=== PATIENT | female | born 1960 | race Caucasian/White ===

== ENCOUNTER 2019-08-16 11:04 | Emergency (ER) | payer OTHER, SELFPAY ==
[2019-08-16] MEDS ORDERED: Ondansetron PF 4 MG/2 ML Vial ONE (11:31)
[2019-08-16] MEDS ORDERED: Famotidine/PF 20 mg/2ml Vial ONE (11:31)
[2019-08-16 11:40] LABS: #Eosinphils 0.1 thou/uL (0.0-0.7); #Lymphocytes 1.3 thou/uL (1.20-3.40); #Monocytes 0.5 thou/uL (0.11-0.59); #Neutrophils 11.8 thou/uL (1.40-6.50); %Basophils 0.3 % (0.0-1.0); %Eosinophils 0.5 % (0.0-10.0); %Lymphocytes 9.6 % (21.0-51.0); %Monocytes 3.9 % (0.0-10.0); %Neutrophils 85.7 % (42.0-75.0); Hemoglobin 14.7 g/dL (12.0-16.0); Mean Corpuscular HGB CONC 33.5 g/dL (32.0-36.0); Mean Corpuscular Hemoglobin 27.4 pg (27.0-31.0); Mean Corpuscular Volume 81.7 fL (78.0-98.0); Mean Platelet Volume 9.1 fL (7.4-10.4); Platelet Count 268 thou/uL (130-400); Red Blood Cell (RBC) Count 5.38 mill/uL (4.20-5.40); White Blood Cell (WBC) Count 13.7 thou/uL (4.8-10.8)
--- NOTE | 2019-08-16 11:58 | RAD ---
Frontal radiograph chest Upright and supine imaging of abdomen and pelvis: 08/16/2019 COMPARISON: None HISTORY: There is contrast media within the colon. No pneumothorax or pleural fluid is seen and there is no focal consolidation or alveolar edema. There is atherosclerotic calcification of the aortic arch. No evidence for free intraperitoneal air or small bowel obstruction. IMPRESSION: No acute findings. Contrast media noted within the colon.
[2019-08-16 12:06] LABS: ALT (SGPT) 17 U/L (8-55); AST (SGOT) 18 U/L (5-34); Albumin 4.3 g/dL (3.5-5.0); Alkaline Phosphatase 104 U/L (40-110); Anion Gap 14 mmol/L (10-20); BUN (Urea Nitrogen) 18 mg/dL (9.8-20.1); Bilirubin, Total 0.5 mg/dL (0.2-1.2); Calc. Creatinine Clearance 0 mL/min (70-130); Calcium 10.7 mg/dL (7.8-10.44); Carbon Dioxide 23 mmol/L (22-29); Chloride 102 mmol/L (98-107); Estimated GFR-MDRD 84; Globulin 3.4 g/dL (2.4-3.5); Glucose 123 mg/dL (70-105); Lipase 21 U/L (8-78); Potassium 3.8 mmol/L (3.5-5.1); Protein, Total 7.7 g/dL (6.0-8.3); Sodium 135 mmol/L (136-145)
[2019-08-16] MEDS ORDERED: Iopamidol-370 76% 500 ML 1 ML ONE (12:13)
[2019-08-16] MEDS ORDERED: Morphine 4 MG/ML VIAL ONE (12:53)
--- NOTE | 2019-08-16 13:48 | CT ---
CT ABDOMEN AND PELVIS WITH IV CONTRAST: 08/16/2019 PROVIDED CLINICAL HISTORY: Abdominal pain. FINDINGS: The visualized lung bases are free of significant opacity. There is a 1 cm hypodensity arising from the posterior aspect of the mid portion of the left kidney, demonstrating Hounsfield units not compatible with a simple cyst. This may reflect a proteinaceous cy st or an enhancing lesion. Subcentimeter probable simple cyst right kidney. The solid abdominal organ s demonstrate an otherwise unremarkable CT appearance. There is conspicuous colonic fecal retention. There is no evidence for bowel obstruction. The appendi x appears normal. There is no inflammatory fat stranding, free fluid or free air apparent. The osseous structures demonstrate no concerning lytic or blastic lesions. Lower lumbar spine degener ative changes are seen. IMPRESSION: 1. Conspicuous colonic fecal retention, suggesting constipation. 2. Exophytic left renal mass, incompletely characterized on the basis of this study. Nonemergent maximo l ultrasound is recommended for further characterization. POS: CORIN
[2019-08-16] MEDS ORDERED: Magnesium Citrate 300 ML BOT ONE (14:34)
== END 2019-08-16 14:40 | disposition home or self-care (01) ==
LOC: ERS 11:04
DX: K59.00 Constipation, unspecified (principal); E11.9 Type 2 diabetes mellitus without complications; E78.00 Pure hypercholesterolemia, unspecified; Z79.899 Other long term (current) drug therapy; Z79.82 Long term (current) use of aspirin
CPT/HCPCS: 36415; 74022; 74177; 80053; 83605; 83690; 85025; 96361; 96372; 96374; 96375; J0500; J2270; J2405; Q9967; S0028

== ENCOUNTER 2019-10-01 08:21 | Outpatient (CLI) | payer BC ==
--- NOTE | 2019-10-05 14:53 | MMO ---
Bilateral MAMMO Bilat Screen [facility]. CLINICAL HISTORY: Patient is 59 years old and is seen for screening. The patient has the following family history of breast cancer: sister, at age 58. The patient has no personal history of cancer. VIEWS: The views performed were: bilateral craniocaudal with tomosynthesis and bilateral mediolateral oblique with tomosynthesis. FILMS COMPARED: The present examination has been compared to prior imaging studies performed at [facility] on 02/28/2017 and 07/17/2018. This study has been interpreted with the assistance of computer-aided detection. MAMMOGRAM FINDINGS: The breasts are almost entirely fat. There are no suspicious masses, suspicious calcifications, or new areas of architectural distortion. IMPRESSION: THERE IS NO MAMMOGRAPHIC EVIDENCE OF MALIGNANCY. A ROUTINE FOLLOW-UP MAMMOGRAM IN 1 YEAR IS RECOMMENDED. THE RESULTS OF THIS EXAM WERE SENT TO THE PATIENT. ACR BI-RADS Category 1 - Negative MAMMOGRAPHY NOTE: 1. A negative mammogram report should not delay a biopsy if a dominant of clinically suspicious mass is present. 2. Approximately 10% to 15% of breast cancers are not detected by mammography. 3. Adenosis and dense breasts may obscure an underlying neoplasm. Reported by: SURY PEACE MD Electonically Signed: [id number]
== END 2019-10-01 08:22 | disposition home or self-care (01) ==
LOC: BICMAMMO 08:21
PROVIDERS: ATTEND Family Medicine
DX: Z12.31 Encounter for screening mammogram for malignant neoplasm of breast (principal); Z80.3 Family history of malignant neoplasm of breast
CPT/HCPCS: 77063; 77067

== ENCOUNTER 2020-07-06 09:50 | Outpatient (CLI) | payer BC ==
--- NOTE | 2020-07-06 11:05 | RAD ---
RIGHT KNEE 2 VIEWS: Date: 07/06/2020 HISTORY: Knee pain. FINDINGS: Medial and lateral joint spaces appear preserved. There are mild degenerative changes noted. Mild spu rring from the posterior patella. No joint effusion. No acute fracture. Prepatellar soft tissue fullness and soft tissue fullness seen within the medial soft tissues on the AP projection. Correlate clinically. IMPRESSION: Mild degenerative changes at the knee with no acute osseous abnormality. Soft tissue swelling as note d. POS: AH
--- NOTE | 2020-07-06 11:08 | RAD ---
LEFT KNEE 2 VIEWS: HISTORY: Knee pain. FINDINGS: The medial and lateral joint spaces are preserved. Mild marginal spurring medially. Mild spurring f orm the posterior patella. Small joint effusion may be present with mild fullness in the suprapatell ar region. Soft tissue swelling seen medially. No fracture or acute abnormality. IMPRESSION: 1. Mild degenerative changes of the left knee as described. Question small joint effusion. POS: AH
== END 2020-07-06 09:51 | disposition home or self-care (01) ==
LOC: BICRAD 09:50
PROVIDERS: ATTEND Family Medicine
DX: M25.561 Pain in right knee (principal); M25.562 Pain in left knee; M17.0 Bilateral primary osteoarthritis of knee; M79.89 Other specified soft tissue disorders